=== PATIENT | female | born 1995 | race Caucasian/White ===

== ENCOUNTER → 2017-12-31 | Outpatient (CLI) | payer BC | END | disposition home or self-care (01) | LOC: C.LABSPEC 13:54 | PROVIDERS: ATTEND Physician Assistant | DX: Z01.411 Encounter for gynecological examination (general) (routine) with abnormal findings (principal); R87.612 Low grade squamous intraepithelial lesion on cytologic smear of cervix (LGSIL) ==

== ENCOUNTER → 2017-12-31 | Outpatient (CLI) | payer BC | END | disposition home or self-care (01) | LOC: C.PAPS 14:28 | PROVIDERS: ATTEND Physician Assistant | DX: Z01.411 Encounter for gynecological examination (general) (routine) with abnormal findings (principal); R87.612 Low grade squamous intraepithelial lesion on cytologic smear of cervix (LGSIL) ==

== ENCOUNTER → 2018-03-24 | Outpatient (CLI) | payer BC ==
[2018-03-24 17:07] LABS: MONOSPOT NEG (NEG)
[2018-03-24 23:44] LABS: RAPID PLASMA REAGIN NONREACTIVE (NONREACT)
== END | disposition home or self-care (01) ==
LOC: C.LAB1850 15:11
PROVIDERS: ATTEND Obstetrics & Gynecology
DX: A60.00 Herpesviral infection of urogenital system, unspecified (principal)